=== PATIENT | female | born 1970 | race Caucasian/White ===

== ENCOUNTER 2022-08-07 04:03 | Observation (INO) | payer BC ==
[2022-08-07] MEDS ORDERED: Ondansetron 4 MG/2 ML SDV IVPUSH PRN (04:40)
[2022-08-07 04:44] LABS: CHLORIDE,CL 104 mEq/L (98-106); SODIUM,NA 142 mEq/L (136-145)
[2022-08-07 04:45] LABS: ESTIMATED GFR 78 mL/min (>=60)
[2022-08-07] MEDS ORDERED: Iopamidol 755 Mg/ML 100 ML Bottle IVPUSH ONE (05:51)
[2022-08-07] MEDS ORDERED: Sodium Chloride 0.9% 1,000 ML IV SCH (07:14)
[2022-08-07] MEDS ORDERED: Acetaminophen 325 MG Tab PO PRN (07:14)
[2022-08-07] MEDS ORDERED: Ondansetron 4 MG Tab.DIS PO PRN (07:14)
[2022-08-07] MEDS ORDERED: Sodium Chloride 0.9% 10 ML Syringe FLUSH PRN (07:14)
[2022-08-07] MEDS: Levothyroxine 150 MCG Tab PO SCH (08:16)
[2022-08-07] MEDS: Escitalopram 10 MG Tab PO SCH (08:16)
[2022-08-07] MEDS ORDERED: LIOTHYRONINE 5 MCG PO SCH (15:30)
[2022-08-07] MEDS: LIOTHYRONINE 5 MCG PO SCH (15:34)
[2022-08-08] MEDS: Levothyroxine 150 MCG Tab PO SCH (06:17)
[2022-08-08] MEDS: Escitalopram 10 MG Tab PO SCH (08:08)
[2022-08-08] MEDS: LIOTHYRONINE 5 MCG PO SCH (08:10)
== END 2022-08-08 09:55 | disposition home or self-care (01) ==
LOC: CC.ED 04:03 → UNDOADMOB 06:00 → CC.MS 06:00 → UNDODISOB 08-08 09:55
PROVIDERS: ADMIT Nurse Practitioner Family; ATTEND Nurse Practitioner Family
DX: R55 Syncope and collapse (principal); D50.9 Iron deficiency anemia, unspecified; Z79.899 Other long term (current) drug therapy
CPT/HCPCS: 36415; 71275; 80053; 81001; 84439; 84443; 84484; 84703; 85025; 85379; 86140; 93005; 93010; 96374; 99223; 99239; 99285-25; A9270-GY; G0378; J2405; J7030; Q9967

== ENCOUNTER 2023-01-06 19:27 | Emergency (ER) | payer BC ==
[2023-01-06 19:57] LABS: APPEARANCE,URINE CLEAR (CLEAR); BILIRUBIN,URINE NEGATIVE (NEGATIVE); COLOR,URINE YELLOW (YELLOW); GLUCOSE,URINE NEGATIVE (NEGATIVE); KETONES,URINE NEGATIVE (NEGATIVE); LEUKOCYTE ESTERASE,URINE NEGATIVE (NEGATIVE); NITRITE,URINE NEGATIVE (NEGATIVE); OCCULT BLOOD,URINE NEGATIVE (NEGATIVE); PROTEIN,URINE NEGATIVE (NEGATIVE); UROBILINOGEN,URINE 0.2 EU/dL (0.2-1.0)
[2023-01-06 20:16] LABS: BACTERIA,URINE NOT SEEN /HPF (NOT SEEN); EPITHELIAL CELLS,URINE OCCASIONAL /HPF (NOT SEEN); RBC,URINE NOT SEEN /HPF (0-5); WBC,URINE NOT SEEN /HPF (0-5)
[2023-01-06 20:32] LABS: BASOPHILS ABSOLUTE AUTO 0.06 10^3/uL (0.00-0.50); BASOPHILS PERCENT AUTO 0.6 % (0-1); EOSINOPHILS PERCENT AUTO 2.1 % (0-6); HEMATOCRIT 37.9 % (37.0-47.0); HEMOGLOBIN 12.7 g/dL (12.0-16.0); IMMATURE GRAN ABSOLUTE AUTO 0.03 10^3/uL (0.00-0.49); IMMATURE GRAN PERCENT AUTO 0.3 % (0.0-4.9); LYMPHOCYTES ABSOLUTE AUTO 1.61 10^3/uL (0.60-5.00); LYMPHOCYTES PERCENT AUTO 16.9 % (24-44); MEAN CORPUSCULAR HEMOGLOBIN 29.8 pg (27.0-32.0); MEAN CORPUSCULAR HGB CONC 33.5 g/dL (32.0-36.0); MONOCYTES ABSOLUTE AUTO 0.87 10^3/uL (0.00-1.50); MONOCYTES PERCENT AUTO 9.1 % (0-10); NEUTROPHILS ABSOLUTE AUTO 6.78 x10^3/uL (1.80-8.00); PLATELET COUNT,PLT 284 10^3/uL (150-400); RED BLOOD CELL COUNT 4.26 x10^6/uL (4.00-5.50); WHITE BLOOD CELL COUNT,WBC 9.6 10^3/uL (4.0-11.0)
[2023-01-06 20:45] LABS: ALBUMIN 3.7 g/dL (3.4-5.0); BILIRUBIN TOTAL 0.2 mg/dL (0.0-1.0); CREATININE 0.9 mg/dL (0.6-1.0); EST CRCL DRUG DOSING (CG) 72.72 mL/min; PROTEIN TOTAL,TP 7.5 g/dL (6.4-8.2)
[2023-01-06] MEDS ORDERED: Iopamidol 755 Mg/ML 100 ML Bottle IVPUSH ONE (21:24)
== END 2023-01-06 22:35 | disposition home or self-care (01) ==
LOC: CC.ED 19:27
DX: K59.00 Constipation, unspecified (principal); E03.9 Hypothyroidism, unspecified; Z79.899 Other long term (current) drug therapy
CPT/HCPCS: 36415; 74177; 80053; 81001; 83690; 83735; 85025; 99283; 99284; Q9967

== ENCOUNTER 2024-10-26 09:26 | Day surgery (SDC) | payer BC ==
[2024-10-26] MEDS: Lactated Ringers 1,000 ML IV SCH (09:54)
== END 2024-10-26 11:42 ==
LOC: CC.SDS 09:26
PROVIDERS: ATTEND Family Medicine
DX: Z12.11 Encounter for screening for malignant neoplasm of colon (principal); I10 Essential (primary) hypertension; E03.9 Hypothyroidism, unspecified; Z79.890 Hormone replacement therapy; Z79.899 Other long term (current) drug therapy
CPT/HCPCS: 36415; 84703; J7120